=== PATIENT | female | born 1955 | race Caucasian/White ===

== ENCOUNTER 2023-08-22 08:50 | Emergency (ER) | payer OTHER ==
[2023-08-22 09:01] VITALS: BP 128/73; PULSE 110; RESP 18; TEMP 98; BMI 22.6
[2023-08-22] MEDS ORDERED: ACETAMINOPHEN 500 MG TABLET (FP) PO ONE (10:03)
[2023-08-22] MEDS ORDERED: ACETAMINOPHEN 500 MG TABLET (FP) ONE (10:04)
== END 2023-08-22 11:39 | disposition home or self-care (01) ==
LOC: JER 08:50
DX: S00.03XA Contusion of scalp, initial encounter (principal); W01.0XXA Fall on same level from slipping, tripping and stumbling without subsequent striking against object, initial encounter
CPT/HCPCS: 70450-TC; 72125-TC; 99284-25